=== PATIENT | female | born 1965 | race Caucasian/White ===

== ENCOUNTER → 2020-07-17 14:52 | Outpatient (CLI) | payer SELFPAY ==
--- NOTE | 2020-07-17 14:57 | CT_ITS ---
STUDY: CT LEFT LOWER EXTREMITY REASON FOR EXAM: Left knee replacement, surgical planning for revision. TECHNIQUE: Transaxial CT imaging of the lower extremity was performed. Coronal and sagittal images were reformatted. Individualized dose optimization techniques were used for this CT. COMPARISON: None. FINDINGS: Knee: There is a total knee arthroplasty. There is a radiolucency adjacent to the tibial stem, greatest at the anterior aspect (axial image 389) measuring 32 mm, suggestive of loosening. There is lateral tilt of the patella and mild lateral patellar subluxation (axial image 270) Normal proximal tibiofibular articulation. There is no joint effusion. The quadriceps tendon is grossly normal. The patellar tendon is grossly normal. Normal Hoffa''s fat pad. There is an ossicle at the medial aspect of the patella (coronal reconstructions 10-12). There are posterior intra-articular bodies (axial images 337-356). There are small anterior intra-articular bodies (sagittal reconstructions 49-53). Hip: The left hip joint space is well-preserved. Ankle: Unremarkable tibiotalar, posterior subtalar, talonavicular and calcaneocuboid articulations. There is ill-defined osteosclerosis in the medial aspect of the distal fibula (coronal reconstruction 38) and lateral aspect of the distal tibia (coronal reconstructions 33, 34) adjacent to the distal tibiofibular synchondrosis, likely enthesopathic changes. There is a posterior calcaneal enthesophyte (sagittal reconstructions 16). CT/Extremity Lower without Contra IMPRESSION: Total knee arthroplasty with radiolucency adjacent to the tibial stem suggestive of loosening. Lateral tilt and mild lateral subluxation of the patella. Intra-articular bodies in the left knee. Electronically Signed: Jose Crystal MD at 13:40 EST Tel , Service support ,
== END ==
PROVIDERS: PCP Family Medicine; Referring Provider Specialist; Visit Provider Specialist
DX: T84.033A Mechanical loosening of internal left knee prosthetic joint, initial encounter (principal)
CPT/HCPCS: 73700

== ENCOUNTER 2020-08-20 11:51 | Inpatient (IN) | payer SELFPAY ==
--- NOTE | 2020-07-17 14:07 | PCM.HP.BLA ---
History and Physical History and Physical [facility] Patient Name: Hilda Al : 1965 From: YUDITH BANDA PA-C DATE OF SURGERY: 08/06/2020 SCHEDULED PROCEDURE: Revision left total knee arthroplasty HISTORY OF PRESENT ILLNESS: Preoperative history and physical exam was performed on July 17, 2020. This is a 54-year-old female who is had ongoing pain for the past 1-2 months. Patient has had a previous bilateral total knee arthroplasty in 2007 at an outside institution at [facility]. Patient states she required a transfusion after the procedure. There is no history of any infections or repeat surgery. She states she began having pain approximately 2 months ago. She has had an infection workup which was negative. 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 Pain has been constant, dull, aching, stabbing, sore. She has increased pain with sitting, walking, and any heavy lifting. She states the more activity she does the more pain she gets in her knee. She feels unsafe walking on slippery surfaces are trying to run. She has tried previous rest. She denies any chest pain, shortness of breath, fevers chills, recent infections. She states she has no underlying medical complications. We are obtaining surgical clearance from the primary care physician. After discussion with Dr. Henrique Pérez, the patient does wish to proceed with a left revision total knee arthroplasty. REVIEW OF SYSTEMS: ROS: Const: Denies anorexia, anxiety, change in appetite, fever, difficulty sleeping, weight change. CV: Denies chest pain, heart murmur, irregular heartbeat and peripheral vascular disease. Resp: Denies asthma, cough, pneumonia, sleep apnea, shortness of breath, tuberculosis and wheezing. GI: Denies constipation, diarrhea, heartburn, nausea, rectal itching, bloody stools and vomiting. : Denies incontinence. Musculo: Reports leg swelling, pain, trouble walking and weakness. Skin: Denies Raynaud's, history of shingles and tattoo. Neuro: Denies ambulatory dysfunction, dizziness, numbness/tingling and tremor. Psych: Denies anxiety, depression, insomnia, mental illness and stress. Marlo/Lymph: Denies anemia, bleeding/bruising tendency and past transfusion. Reviewed, no changes. PAST MEDICAL HISTORY: Advance Care Plan: No Advance Directives Effective Date: 05/20/2020 PMH: Medical Problems: None Accidents: None Surgical Hx: Tonsillectomy - 1970 [facility] D & C - 2002 [facility] Odin TKR - (2007) Anesthesia Complications: None Assistive Devices: Glasses Reviewed and updated. 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 Personal Habits: Cigarette Use: Never.Smokeless Tobacco: Never Used Smokeless Tobacco.E-Cigarette Use: Never used.Alcohol: Denies use.Drug Use: Denies Use.Enjoy Exercising: Never Exercises. Reviewed, no changes. VITALS: Ht: 67 Wt: 179lb Wt k.194 BMI: 28.0 BP: 113/72 Pulse: 71 Resp: 14 T: 98.1 T: 36.7C Pain Level: 2 ALLERGIES: Povidone Iodine - rash MEDICATIONS: Iron 2 -3 daily, Vitamin D 1 a day, Womens Daily Formula 1 in the morning PRE-OP EXAM: General appearance:NORMAL Other: Eyes: Conjunctivae and lids: NORMAL Pupils: ERR Ears, Nose, Mouth, and Throat: NORMAL Other: Inspection of lips, teeth and gums: NORMAL Other: Neck: Examination of neck: no masses noted. Respiratory: Assessment of respiratory effort: NORMAL Other: Auscultation of lungs: clear to auscultation no wheezes, rhonchi or rales. Cardiovascular: Auscultation of heart: regular rate and rhythm, no murmurs, gallops or rubs. Exam of carotid arteries: NORMAL Other: Gastrointestinal: Exam of abdomen: soft, nontender, nondistended bowel sounds present. PHYSICAL EXAMINATION: Patient walks with a mild antalgic gait. She has tenderness to palpation along the pes anserine bursa. She also has posterior lateral knee pain. There is minimal translation with anterior drawer testing. 3 of hyperextension. 1-2 mm of medial lateral laxity. Flexion 132. Previous incision is well healed without any erythema or signs of infection. Sensation intact to light touch. IMAGING STUDIES: Previous x-rays of the left knee revealed well aligned left total knee arthroplasty. There are lucencies on the tibial component under the medial and lateral flanges. Mild lucencies around the post. Previous bone scan results from [facility] are also consistent with tibial component loosening. Previous lab work including CRP was 0.62 and ESR 4. IMPRESSION: 1. 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 Henrique Pérez did discuss and review with the patient all treatment options including surgical versus nonsurgical options. Patient does wish to proceed with the above-stated procedure. Potential risks, benefits, and complications of the procedure were discussed in detail including but not limited to , infection, nerve and blood vessel damage, persistent pain, numbness, tingling, paresthesias, blood clot, pulmonary embolism, and requirement for possible further surgery. The patient expressed full understanding and has no further questions for the doctor. Patient does agree to proceed with the above-stated procedure and has signed the surgery consent form. We discussed the current risks associated with COVID 19. This does include the risk of exposure while in the hospital. Patient was reassured local hospitals have low infection rates and are taking all necessary precautions to avoid exposure to patients. In addition, we discussed strategies that can be used to help limit exposure including those that limit the patient's time in the hospital. Also using strategies to limit the patient's need for continued inpatient services after being discharged from the hospital. Patient was notified that we will need to comply with any screening or testing the hospital wishes to perform or that surgery may be delayed for any positive results. This dictation was created using voice recognition software. Phonetic and/or grammatical errors may exist. ___ I have re-examined the patient. There are no clinical changes since date of exam. ___ See progress notes for changes. ___ Dictated on admission Date: Time: Signature:
--- NOTE | 2020-07-23 14:02 | EKG12_ITS ---
Test Reason : PRE OP Blood Pressure : / mmHG Vent. Rate : 068 BPM Atrial Rate : 068 BPM P-R Int : 130 ms QRS Dur : 076 ms QT Int : 380 ms P-R-T Axes : 019 008 009 degrees QTc Int : 404 ms Normal sinus rhythm Normal ECG Confirmed by CORBIN GARCÍA, PETER ([id number]), map editor TAI KENT ([id number]) on 07/30/2020 9:40:32 A M Referred By: Henrique Pérez Confirmed By:SURENDRA ALANIZ MD
[2020-07-23 14:54] LABS: Absolute Lymphocyte Count 1.55 X10^3/uL (0.83-4.51); Absolute Neutrophil Count 3.6 X10^3/uL (2.0-7.7); Basophil# 0.02 X10^3/uL; Basophil% 0.3 % (0-1); Eosinophil# 0.14 X10^3/uL; Eosinophils% 2.4 % (0-5); Hematocrit 40.5 % (37-54); Hemoglobin 13.4 g/dL (13.0-16.5); Lymphocyte # 1.55 X10^3/ul (4.0); Lymphocyte % 26.3 % (19-41); Mean Corp Hgb Conc 33.1 g/dL (32-36); Mean Corpuscular Hgb 29.6 pg (27.0-32.0); Mean Corpuscular Volume 89.4 fL (80-94); Mean Platelet Vol. 10.7 fl (6.2-12.0); Monocyte# 0.58 X10^3/uL; Monocyte% 9.8 % (0-10); NRBC Flagged by Analyzer 0 % (0-5); Platelet Count 228 K/mm3 (150-450); RBC Distribution Width CV 13.2 % (11.6-14.6); Red Blood Count 4.53 M/mm3 (4.6-6.2); White Blood Count 5.9 K/mm3 (4.4-11.0)
[2020-07-23 15:06] LABS: Prothrombin Time (Protime)PT. 13.1 SECONDS (11.7-14.9)
[2020-07-23 15:07] LABS: Partial Thromboplast Time 30.4 Seconds (24.1-36.2)
[2020-07-23 15:09] LABS: AST(SGOT) 13 U/L (15-37); Alanine Aminotransfer ALT/SGPT 25 U/L (13-61); Albumin, Serum 3.8 g/dL (3.2-5.0); Alkaline Phosphatase 62 U/L (45-117); Anion Gap 5 (5-15); BUN 14 mg/dL (7-18); BUN/Creat Ratio 22.3 RATIO (10-20); Bilirubin, Direct 0.09 mg/dL (0.00-0.30); Calcium,Total 9.1 mg/dL (8.5-10.1); Chloride 108 mmol/L (98-107); Creatinine, Serum 0.63 mg/dL (0.55-1.30); EST Glomerular Filtration Rate 105 mL/min (>60); Est Glom Filt Rate - Afr Amer 128 mL/min (>60); Globulin 3.4 g/dL (2.2-4.2); Glucose 77 mg/dL (74-106); Magnesium 1.8 mg/dL (1.6-2.6); Potassium 3.6 mmol/L (3.5-5.1); Protein, Total 7.2 g/dL (6.4-8.2); Sodium Level 142 mmol/L (136-145)
[2020-08-20] VITALS (11 sets, daily range): BP systolic 116–160; BP diastolic 67–87; PULSE 60–77; RESP 16–18; TEMP 36.1–37.1; O2SAT 98–100; BMI 28.0; BMI 27.3
[2020-08-20] MEDS: Gabapentin 600 MG Tablet PO (07:00)
[2020-08-20] MEDS: Scopolamine 1mg/72hr Patch 1 PATCH TD (07:00)
[2020-08-20] MEDS: Acetaminophen 500 MG Tablet 1000 MG PO ×2 (07:00→20:49)
[2020-08-20] MEDS: Lactated Ringers 1,000 ML 75 ML IV (07:00)
[2020-08-20] MEDS: Celecoxib 200 MG Capsule 400 MG PO (07:00)
[2020-08-20 12:55] LABS: Bedside Glucose 83 mg/dL (70-110)
--- NOTE | 2020-08-20 13:09 | PCM.HP.BLA ---
History and Physical History and Physical [facility] Patient Name: Hilda Al : 1965 From: YUDITH BANDA PA-C DATE OF SURGERY: 08/06/2020 SCHEDULED PROCEDURE: Revision left total knee arthroplasty HISTORY OF PRESENT ILLNESS: Preoperative history and physical exam was performed on July 17, 2020. This is a 54-year-old female who is had ongoing pain for the past 1-2 months. Patient has had a previous bilateral total knee arthroplasty in 2007 at an outside institution at [facility]. Patient states she required a transfusion after the procedure. There is no history of any infections or repeat surgery. She states she began having pain approximately 2 months ago. She has had an infection workup which was negative. 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 Pain has been constant, dull, aching, stabbing, sore. She has increased pain with sitting, walking, and any heavy lifting. She states the more activity she does the more pain she gets in her knee. She feels unsafe walking on slippery surfaces are trying to run. She has tried previous rest. She denies any chest pain, shortness of breath, fevers chills, recent infections. She states she has no underlying medical complications. We are obtaining surgical clearance from the primary care physician. After discussion with Dmyself, the patient does wish to proceed with a left revision total knee arthroplasty. REVIEW OF SYSTEMS: ROS: Const: Denies anorexia, anxiety, change in appetite, fever, difficulty sleeping, weight change. CV: Denies chest pain, heart murmur, irregular heartbeat and peripheral vascular disease. Resp: Denies asthma, cough, pneumonia, sleep apnea, shortness of breath, tuberculosis and wheezing. GI: Denies constipation, diarrhea, heartburn, nausea, rectal itching, bloody stools and vomiting. : Denies incontinence. Musculo: Reports leg swelling, pain, trouble walking and weakness. Skin: Denies Raynaud's, history of shingles and tattoo. Neuro: Denies ambulatory dysfunction, dizziness, numbness/tingling and tremor. Psych: Denies anxiety, depression, insomnia, mental illness and stress. Marlo/Lymph: Denies anemia, bleeding/bruising tendency and past transfusion. Reviewed, no changes. PAST MEDICAL HISTORY: Advance Care Plan: No Advance Directives Effective Date: 05/20/2020 PMH: Medical Problems: None Accidents: None Surgical Hx: Tonsillectomy - 1970 [facility] D & C - 2002 [facility] Odin TKR - (2008) Anesthesia Complications: None Assistive Devices: Glasses Reviewed and updated. 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 Personal Habits: Cigarette Use: Never.Smokeless Tobacco: Never Used Smokeless Tobacco.E-Cigarette Use: Never used.Alcohol: Denies use.Drug Use: Denies Use.Enjoy Exercising: Never Exercises. Reviewed, no changes. VITALS: Ht: 67 Wt: 179lb Wt k.194 BMI: 28.0 ALLERGIES: Povidone Iodine - rash MEDICATIONS: Iron 2 -3 daily, Vitamin D 1 a day, Womens Daily Formula 1 in the morning PRE-OP EXAM: General appearance:NORMAL Other: Eyes: Conjunctivae and lids: NORMAL Pupils: ERR Ears, Nose, Mouth, and Throat: NORMAL Other: Inspection of lips, teeth and gums: NORMAL Other: Neck: Examination of neck: no masses noted. Respiratory: Assessment of respiratory effort:nonlabored Cardiovascular: Auscultation of heart: regular pulse rate. Exam of carotid arteries: NORMAL Other: Gastrointestinal: Exam of abdomen: nondistended PHYSICAL EXAMINATION: Patient walks with a mild antalgic gait. She has tenderness to palpation along the pes anserine bursa. She also has posterior lateral knee pain. There is minimal translation with anterior drawer testing. 3 of hyperextension. 1-2 mm of medial lateral laxity. Flexion 132. Previous incision is well healed without any erythema or signs of infection. Sensation intact to light touch. IMAGING STUDIES: Previous x-rays of the left knee revealed well aligned left total knee arthroplasty. There are lucencies on the tibial component under the medial and lateral flanges. Mild lucencies around the post. Previous bone scan results from [facility] are also consistent with tibial component loosening. Previous lab work including CRP was 0.62 and ESR 4. IMPRESSION: 1. 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 Patient does wish to proceed with the above-stated procedure. Potential risks, benefits, and complications of the procedure were discussed in detail including but not limited to , infection, nerve and blood vessel damage, persistent pain, numbness, tingling, paresthesias, blood clot, pulmonary embolism, and requirement for possible further surgery. The patient expressed full understanding and has no further questions for the doctor. Patient does agree to proceed with the above-stated procedure and has signed the surgery consent form.
[2020-08-20] MEDS: Cefazolin 2 GM in 0.9% Normal Saline 100 ML IV (14:59)
[2020-08-20] MEDS: dexAMETHasone 10 MG/ML Vial IV (15:09)
[2020-08-20] MEDS: Lactated Ringers 1,000 ML 999 ML IV ×2 (16:00→18:41)
[2020-08-20] MEDS: Joint Pain Solution (NO MORPHINE) 100 ML IV (17:10)
--- NOTE | 2020-08-20 17:28 | OP.PCM_ITS ---
Report of Operation Date of Procedure: 08/20/20 Pre-Operative Diagnosis: Failed left total knee, aseptic loosening Post-Operative Diagnosis: Failed left total knee, aseptic loosening Surgery/Procedure Performed:: Robotic assisted revision left total knee replacement, entire tibial and femoral components Description of Surgical Findings:: Stable knee with good patella tracking. Patella component remains well fixed. butt welder: Viraj Spivey Type of Anesthesia:: Spinal Anesthesiologist: Nolberto Osullivan Special Medications: 2 g Ancef, 1 g TXA at incision, 1 g TXA closure, 10 mg Decadron, joint cocktail (5 mg Duramorph, 30 mL of 0.5% Ropivicaine, 1000 units of epinephrine, 30 mg of Toradol) Specimen's removed: 3 separate specimens were sent to microbiology Estimated Blood Loss (mL): 100 Fluids Replaced: 1500 mL crystalloid Description of Procedure: Implants used: 1. [place] size 4 triathlon total stabilized femoral component with 5 mm augment posterior medially and 10 mm augment posterior laterally and a 15 x 100 mm cemented stem 2. Arielle size 5 tibial baseplate with 12 x 50 mm cemented stem 3. [place] X3 19 mm TS polyethylene Brief history operative indications: 55-year-old female with history of left knee osteoarthritis with radiographic findings with loss of joint space, osteophyte formation and subchondral sclerosis. Failed conservative measures as mentioned in the H&P. Discussion of total knee arthroplasty as well as risk and benefits were discussed the patient including but not limited to blood loss, DVTs, PEs, neurovascular damage, general risk of anesthesia including loss of life, and stiffness or instability were discussed with patient. Patient demonstrated understanding and was able to sign informed consent. Procedure: On the date of procedure patient's left lower extremity was marked in the pre operative area. The patient was then taken back to the operating room where the patient was placed on the table in the supine position. All bony prominences were identified a well-padded. Anesthesia assumed control of the C-spine and airway and remained controlled throughout the remainder of the procedure. A tourniquet was placed on the left upper thigh and the leg was prepped in a sterile fashion. The surgeon then scrubbed at this time .Upon reentering the room left lower extremity was draped in a standard orthopedic fashion. A timeout was then called and everyone agreed upon the side, the site, the procedure to be performed, patient's identity and antibiotics given. Esmarch bandage was used to exsanguinate the extremity and the tourniquet was placed up to 250 mmHg with the knee in flexion. A midline skin incision was made using the previous incision and extending it 1 cm proximally distally and sharp dissection was taken down through skin subcutaneous tissue and fat. The standard medial parapatellar incision was made and the patella was subluxed laterally. An Appropriate deep MCL release was done in order to expose the tibia for implant removal and the fat pad was resected. At this time a complete synovectomy was performed. Suprapatellar synovium was sent for culture. The knee was then flexed up in 2 femoral pins were placed inside the incision and 2 tibial pins were placed outside the incision in the medial tibia bicortically. Once this was completed the 2 checkpoints in the femur and tibia were placed. Knee was then flexed up and the bony landmarks were registered. Once this was completed knee was taken through range of motion and manually stressed allowing us to a plan for an appropriate tibial cut. The robotic arm was brought into the field sterilely and checkpoint and saw were registered. At this time we then directed our attention to removing the femoral and tibial implants. Femur was removed first using a flexible osteotome and straight osteotome. Bone tamp was then used to remove with minimal bone loss. Then directed our attention to the tibia where a TPS saw and flexible osteotome were used. Once we had a loosened up enough bone tamp was used to remove it. It came out without much of the cement mantle clearly loosened from the cement mantle. The cement mantle was then debrided. Based on the patient's deformity and previous surgical plan the tibial cut was made in 1 degree of varus cleanup cut. At this time we then reamed for a size B tibial cone and selected a size 5 tibial baseplate punched the keel and put the trial tibia in place. At this time the tensioner was then placed in the joint and ligament tension was checked at 90 degrees and full extension. Based on the patient's ligamentous tension appropriate adjustments were made to the operative plan and ligament releases were done. Once we were happy with our operative plan with balanced flexion and extension gaps our attention was directed to the femur. The robot was brought into the field sterilely and registered. Posterior condylar cuts, anterior chamfer cuts and anterior cuts were appropriately made for a size 4 femur. Based on the bone loss we then made a 5 mm cut for the posterior medial condyle and then a 10 mm cut for the posterior lateral condyle. Distally we were able to make fresh cleanup cuts when these were completed the saws were switched out in the distal femoral and posterior chamfer cuts were made. Protecting the soft tissue throughout this time. A size 5 tibial base plate was selected. the knee was flexed to 90 degrees and the soft tissues and posterior osteophytes were removed from the joint. 40 cc of the periarticular injection was injected into the posterior medial corner of the joint. The appropriate trials were then placed on the femur and tibia. A trial polyethylene was trialed to ensure proper balancing and stability of the knee. The appropriate tibial internal rotation was then marked with a bovie. Our attention was then directed to the patella. The lug holes were drilled and the patella trial was placed. Patellar tracking was checked and deemed appropriate. Once we were happy lug holes were drilled for the femur and trial components were removed. the tibia was subluxed and pinned into place and the keel was punched and drilled appropriately. Final components were verified and opened, and cement was mixed in a vacuum. [employer] Simplex cement was used. The wound was copiously irrigated with normal saline. When the cement was ready the components were cemented into place starting with the tibia, and then the femur. This was done in 2 separate batches. The trial poly component was placed and the knee was placed in full extension. All excess cement was removed in the process. Once the cement had cured the tracking, alignment and balance were verified and a size 19 mm TS polyethylene component was placed. Once the final components were placed an Irrisept lavage was performed and the wound was copiously irrigated with normal saline solution and the periarticular injection was given. The wound was closed in a layer arellano fashion using #1 vicryl interrupted sutures for the arthrotomy, 2-0 interrupted Vicryl suture for the subcuticular layer and lashay for final skin closure. A sterile compressive dressing was then placed. The patient was then awakened from anesthesia, transferred to the [facility] and transferred to the PACU for recovery. Post op plan DVT ppx: ASA 81mg BID, thigh high compression stockings Follow up: in office in 2 weeks for wound check. Patient will take doxycycline for 2 weeks as we follow cultures PT: to start POD #0 at hospital, outpatient PT should be arranged. My physician retail administrative assistant was a vital part of this case. He was important in appropriate retraction during the case, and protection of soft tissues during bony cuts. His intimate knowledge of the case and my steps aided in safe and expedient completion of the procedure as well as appropriate position of the leg during the case. He was also vital in assisting with closure under my direct supervision. Due to the complexity of this case robotic arm was used to assist in the surgery to improve accuracy and clinical outcomes. - Complications No intraoperative complications - Admit VTE Documentation VTE Present on Admission: No VTE Mechan Device Prophylaxis: SCD's, Thigh High YAMIL Riley VTE Pharm Prophylaxis ordered?: Yes
--- NOTE | 2020-08-20 18:15 | RAD_ITS ---
STUDY: X-RAY - LEFT KNEE REASON FOR EXAM: Female, 55 years old. post op left knee TECHNIQUE: 2 view(s) of the knee. COMPARISON: None. Findings: There is a recent total knee arthroplasty. The femoral and tibial components appear in satisfactory position. There has been patellar resurfacing. There is soft tissue air consistent with recent surgery. The visualized femoral, tibial, and fibular shafts are unremarkable. RAD/Knee 1 or 2 Views IMPRESSION: Satisfactory appearance of a total knee arthroplasty. Electronically Signed: Vipul Fregoso MD at 18:39 EST , Service support ,
[2020-08-20] MEDS: Lactated Ringers 1,000 ML 125 ML IV (20:02)
--- NOTE | 2020-08-20 20:12 | PCS.PANDOC ---
PANDEMIC DOCUMENTATION INITIATED: Date: 08/20/20 Time: 1950
--- NOTE | 2020-08-20 20:29 | PN_ITS ---
Reason for Visit: Left knee pain Subjective: Patient is a 55-year-old female with a significant history of bilateral knee replacements who is postop day 0 for revision of left total knee arthroplasty. In 2007 patient had a bilateral knee replacements. One to two months ago she developed pain in her left knee. Patient was diagnosed with aseptic loosening of the left total knee implants. Infectious work-up was unremarkable. Internal medicine service has been consulted for postop medical management.. At the time of examination patient complains of pain in left knee as well as pain in suprapubic area and lower back pain. Vitals/I&O's: Vital Signs Temp Pulse Resp BP Pulse Ox 96.9 F L 63 16 147/77 H 100 08/20/20 19:58 08/20/20 19:58 08/20/20 19:58 08/20/20 19:58 08/20/20 19:58 Oxygen Flow Rate (L/min) 7 Oxygen Delivery Method Simple Mask Weight: 79.379 kg Body Mass Index (BMI) 27.3 Intake and Output for Last 24 Hours 08/18/20 08/19/20 08/20/20 23:59 23:59 23:59 Intake Total 3435 / 3435 Balance 3435 / 3435 General: Alert, Oriented x3, Cooperative HEENT: Atraumatic, PERRLA, EOMI, Normocephalic Neck: Supple, No JVD, Negative Carotid Bruits Lungs: Clear to auscultation, Normal air movement Cardiovascular: Regular rate, No murmurs Abdomen: Bowel Sounds Present, Soft, Non Tender, - - Mild suprapubic tenderness Extremities: No edema, Capillary Refill Less than 3 Seconds, - - Left knee with ice pack. Skin: No rashes, No breakdown Musculoskeletal: No Tenderness to Palpation of Joints or Extremities Neurological: Cranial nerves II-XII grossly intact Psych/Mental Status: Normal Affect, Appropriate Microbiology Past 72 Hours 08/19/20 09:30 Interface Orders SARS-CoV-2 Antigen (Rapid) - Final Laboratory Results 08/20/20 12:38: POC Glucose 83 Current Medications Acetaminophen (Acetaminophen 500 Mg Tablet) 1,000 mg PO Q8 [facility] Aspirin (Aspirin 81 Mg Tab.Chew) 81 mg PO BIDCM [facility] Doxycycline Monohydrate (Doxycycline 100 Mg Capsule) 100 mg PO BID [facility] Enteral Nutritional Formula (Ensure Surgery 237 Ml Liquid) 237 ml PO TIDCM [facility] Famotidine (Famotidine 20 Mg Tablet) 20 mg PO DAILY [facility] Hydromorphone HCl (Hydromorphone 0.5 Mg/0.5 Ml Syringe) 0.5 mg IV Q3H PRN PRN PRN Reason: Pain Score 6-10 Lactated Ringer's () 1,000 mls @ 125 mls/hr IV .Q8H [facility] Last Admin: 08/20/20 20:02 Dose: 125 mls/hr Documented by: Cefazolin Sodium () 1 gm in 50 mls @ 150 mls/hr IV Q8H [facility] Stop: 08/21/20 07:19 Sodium Chloride () 250 mls @ 15 mls/hr IV .[id number] PRN PRN Reason: Saline Flush Sodium Chloride () 250 mls @ 15 mls/hr IV .[id number] PRN PRN Reason: Additional IVPB Infusion Ketorolac Tromethamine (Ketorolac 15 Mg/Ml Vial) 15 mg IV Q6H PRN PRN PRN Reason: Pain Score 1-10 Stop: 08/21/20 23:01 Meloxicam (Meloxicam 7.5 Mg Tablet) 7.5 mg PO BID [facility] Ondansetron HCl (Ondansetron 4 Mg/2 Ml Vial) 4 mg IV Q8H PRN PRN PRN Reason: NAUSEA Promethazine HCl (Promethazine 25 Mg/Ml Syringe) 12.5 mg IM Q6H PRN PRN; Protocol PRN Reason: NAUSEA/VOMITING Senna/Docusate Sodium (Senna/Docusate Sodium 1 Tablet) 2 tablet PO BID [facility] Sodium Chloride (0.9% Nacl Peripheral Flush Adult/Peds) 5 - 15 ml IV UD PRN PRN Reason: SALINE FLUSH Sodium Chloride (0.9% Saline Lock 10 Ml Syringe) 10 - 40 ml IV UD PRN PRN Reason: SALINE FLUSH Tramadol HCl (Tramadol 50 Mg Tablet) 50 - 100 mg PO Q6H PRN PRN PRN Reason: Pain Score 4-10 STROKE Vital Signs/Narrative: Vital Signs Temp Pulse Resp BP Pulse Ox 08/20/20 19:58 96.9 F L 63 16 147/77 H 100 08/20/20 19:31 98.0 F 67 16 139/81 H 100 08/20/20 19:15 62 16 135/82 H 100 08/20/20 19:00 67 16 133/75 H 100 08/20/20 18:45 60 16 130/77 H 100 08/20/20 18:30 70 16 125/67 H 100 08/20/20 18:15 63 16 119/75 100 08/20/20 18:07 97.8 F 77 18 116/70 100 Medical Necessity - Tobacco Use Smoking Status: Never smoker Tobacco Use: Non-smoker Assessment/Plan Patient is a 55-year-old female with a significant history of bilateral knee replacements who is postop day 0 revision of left arthroplasty arthroplasty. Post op Day 1 On pain control Cultures per orthopedic surgery CBC and BMP in a.m. On cefazolin preoperatively; and on doxycycline. Per Orthopedic notes patient will be on dicyclomine for 2 weeks while cultures are followed. Management per primary. Suprapubic pain and lower back pain Likely secondary to patient's not emptying bladder post surgery and positioning Bladder scan as needed postvoid DVT prophylaxis SCD; YAMIL larrye and aspirin per orthopedic surgery Inpatient E&M: 69264 Init Hosp L2
[2020-08-20] MEDS: Ondansetron 4 MG/2 ML Vial IV (20:44)
[2020-08-20] MEDS: Senna/Docusate Sodium 1 Tablet 2 TABLET PO (20:49)
[2020-08-20] MEDS: Doxycycline 100 MG CAPSULE PO (20:49)
[2020-08-20] MEDS: Aspirin 81 MG TAB.CHEW PO (20:49)
[2020-08-20] MEDS: Cefazolin 1 GM/50 ML BAG IV (22:28)
[2020-08-20] MEDS: traMADol 50 MG Tablet PO (22:33)
[2020-08-21] VITALS: BP 124/81; PULSE 62; RESP 16; TEMP 36.5; O2SAT 98
[2020-08-21 01:00] VITALS: BP 124/81; PULSE 74; RESP 16; TEMP 36.5; O2SAT 99
[2020-08-21] MEDS: Ketorolac 15 MG/ML Vial IV ×2 (01:46→10:09)
[2020-08-21] MEDS: 0.9% NaCl Peripheral Flush Adult/Peds IV ×3 (01:48→10:11)
[2020-08-21 03:15] VITALS: BP 119/65; PULSE 60; RESP 16; TEMP 36.4; O2SAT 99
[2020-08-21] MEDS: Lactated Ringers 1,000 ML 15 ML IV (05:37)
[2020-08-21] MEDS: Acetaminophen 500 MG Tablet 1000 MG PO ×2 (05:41→14:20)
[2020-08-21] MEDS: traMADol 50 MG Tablet PO ×2 (05:42→15:15)
[2020-08-21] MEDS: Cefazolin 1 GM/50 ML BAG IV (05:44)
[2020-08-21 05:59] VITALS: BP 144/74; PULSE 60; RESP 18; TEMP 36.5; O2SAT 99
[2020-08-21 07:24] LABS: Hematocrit 40.9 % (37-47); Hemoglobin 13.6 g/dL (12.0-15.0); Mean Corp Hgb Conc 33.3 g/dL (32-36); Mean Corpuscular Hgb 29.7 pg (27.0-32.0); Mean Corpuscular Volume 89.3 fL (81-99); Platelet Count 231 K/mm3 (150-450); RBC Distribution Width CV 12.6 % (11.6-14.6); RBC Distribution Width SD 41.2 fl (35.1-43.9); Red Blood Count 4.58 M/mm3 (4.2-5.4); White Blood Count 14.8 K/mm3 (4.4-11.0)
[2020-08-21] MEDS: Aspirin 81 MG TAB.CHEW PO (08:06)
[2020-08-21 08:10] LABS: Anion Gap 4 (5-15); BUN 10 mg/dL (7-18); BUN/Creat Ratio 12.8 RATIO (10-20); Calcium,Total 9.1 mg/dL (8.5-10.1); Chloride 106 mmol/L (98-107); Creatinine, Serum 0.78 mg/dL (0.55-1.02); EST Glomerular Filtration Rate 82 mL/min (>60); Est Glom Filt Rate - Afr Amer 99 mL/min (>60); Estimated Creatinine Clearance 81.11 ml/min; Glucose 117 mg/dL (74-106); Potassium 4.3 mmol/L (3.5-5.1); Sodium Level 138 mmol/L (136-145)
[2020-08-21 08:46] VITALS: BP 117/74; PULSE 57; RESP 18; TEMP 36.4; O2SAT 100
--- NOTE | 2020-08-21 09:01 | PCM.PN.ORT ---
Subjective: The patient was sitting in bedside chair upon examination. Patient denies any chest pain, shortness of breath, dizziness, lightheadedness, nausea or vomiting, or calf pain. Pain is controlled on medications. No adverse overnight events. Overall patient is doing well at this point. She has required pain medication. Patient has significant allergies with narcotic pain meds including hydrocodone, oxycodone, and morphine. She is able to take Tylenol. Patient states she has been up walking to the bathroom and has tolerated this well. She does wish to go home today as long as she is medically stable. Objective: Vital signs stable and afebrile. Patient is able to plantarflex and dorsiflex actively. Sensation is intact to light touch to saphenous, sural, superficial and deep peroneal, and tibial distribution. Dressing is with minimal drainage over the proximal main dressing and remaining dressings are clean dry and intact. Negative Homans bilaterally, negative signs and symptoms of DVT. - Physical Exam Vitals/I&O's: Vital Signs Temp Pulse Resp BP Pulse Ox 97.5 F L 57 L 18 117/74 100 08/21/20 08:46 08/21/20 08:46 08/21/20 08:46 08/21/20 08:46 08/21/20 08:46 Oxygen Flow Rate (L/min) 7 Oxygen Delivery Method Room Air Weight: 79.379 kg Body Mass Index (BMI) 27.3 Intake and Output for Last 24 Hours 08/19/20 08/20/20 08/21/20 23:59 23:59 23:59 Intake Total 3485 / 3885 1650 / 1650 Output Total 1900 / 1900 Balance 3485 / 3285 -250 / -250 General: Alert, Oriented x3, Cooperative, No apparent distress Microbiology Past 72 Hours 08/19/20 09:30 Interface Orders SARS-CoV-2 Antigen (Rapid) - Final Laboratory Results 08/20/20 12:38: POC Glucose 83 08/21/20 06:23: WBC 14.8 H, RBC 4.58, Hgb 13.6, Hct 40.9, MCV 89.3, MCH 29.7, MCHC 33.3, RDW Std Deviation 41.2, RDW Coeff of Gilda 12.6, Plt Count 231, MPV 11.0 08/21/20 06:23: Sodium 138, Potassium 4.3, Chloride 106, Carbon Dioxide 28.0, Anion Gap 4 L, BUN 10, Creatinine 0.78, Estim Creat Clear Calc 81.11, Est GFR (MDRD) Af Amer 99, Est GFR (MDRD) Non-Af 82, BUN/Creatinine Ratio 12.8, Glucose 117 H, Calcium 9.1 Current Medications Acetaminophen (Acetaminophen 500 Mg Tablet) 1,000 mg PO Q8 [facility] Last Admin: 08/21/20 05:41 Dose: 1,000 mg Documented by: Aspirin (Aspirin 81 Mg Tab.Chew) [facility] Last Admin: 08/21/20 08:06 Dose: 81 mg Documented by: Doxycycline Monohydrate (Doxycycline 100 Mg Capsule) 100 mg PO BID [facility] Last Admin: 08/20/20 20:49 Dose: 100 mg Documented by: Enteral Nutritional Formula (Ensure Surgery 237 Ml Liquid) 237 ml PO TIDCM [facility] Last Admin: 08/21/20 08:07 Dose: Not Given Documented by: Famotidine (Famotidine 20 Mg Tablet) 20 mg PO DAILY [facility] Hydromorphone HCl (Hydromorphone 0.5 Mg/0.5 Ml Syringe) 0.5 mg IV Q3H PRN PRN PRN Reason: Pain Score 6-10 Lactated Ringer's () 1,000 mls @ 125 mls/hr IV .Q8H [facility] Last Admin: 08/21/20 05:37 Dose: 15 mls/hr Documented by: Sodium Chloride () 250 mls @ 15 mls/hr IV .[id number] PRN PRN Reason: Saline Flush Sodium Chloride () 250 mls @ 15 mls/hr IV .[id number] PRN PRN Reason: Additional IVPB Infusion Ketorolac Tromethamine (Ketorolac 15 Mg/Ml Vial) 15 mg IV Q6H PRN PRN PRN Reason: Pain Score 1-10 Stop: 08/21/20 23:01 Last Admin: 08/21/20 01:46 Dose: 15 mg Documented by: Meloxicam (Meloxicam 7.5 Mg Tablet) 7.5 mg PO BID [facility] Ondansetron HCl (Ondansetron 4 Mg/2 Ml Vial) 4 mg IV Q8H PRN PRN PRN Reason: NAUSEA Last Admin: 08/20/20 20:44 Dose: 4 mg Documented by: Promethazine HCl (Promethazine 25 Mg/Ml Syringe) 12.5 mg IM Q6H PRN PRN; Protocol PRN Reason: NAUSEA/VOMITING Senna/Docusate Sodium (Senna/Docusate Sodium 1 Tablet) 2 tablet PO BID [facility] Last Admin: 08/20/20 20:49 Dose: 2 tablet Documented by: Sodium Chloride (0.9% Nacl Peripheral Flush Adult/Peds) 5 - 15 ml IV UD PRN PRN Reason: SALINE FLUSH Last Admin: 08/21/20 05:46 Dose: 10 ml Documented by: Sodium Chloride (0.9% Saline Lock 10 Ml Syringe) 10 - 40 ml IV UD PRN PRN Reason: SALINE FLUSH Tramadol HCl (Tramadol 50 Mg Tablet) 50 - 100 mg PO Q6H PRN PRN PRN Reason: Pain Score 4-10 Last Admin: 08/21/20 05:42 Dose: 100 mg Documented by: Medical Necessity - Tobacco Use Smoking Status: Never smoker Tobacco Use: Non-smoker Assessment/Plan 1. S/P revision left total knee arthroplasty secondary to aseptic loosening POD #1 2. Continue Pain Medications: Tylenol, tramadol, meloxicam 3. DVT Prophylaxis: Take 81 mg aspirin twice daily for 4 weeks postoperatively for DVT prophylaxis 4. PT/OT: Weightbearing as tolerated 5. H & H: 13.6/40.9, asymptomatic. Postoperative anemia secondary to acute blood loss from surgery without any intra operative complications. 6. Reactive leukocytosis: Currently 14.8, afebrile. Patient did receive Decadron intraoperatively 7. Continue antibiotics while following cultures: Currently pending. She is on doxycycline 1 week postoperatively 8. Continue postoperative medical management per medicine 9. Encouraged Incentive Spirometry 10. Disposition: Plan will be for possible discharge home today as long as patient is medically stable and pain is well controlled. I had a discussion again with the patient with regards to postoperative pain control. She is aware this may be difficult as she has significant allergies to other narcotics. So far she has tolerated the tramadol, Tylenol without any complications. She will be also on meloxicam for pain control. At this time we will proceed forward with physical therapy and if she is doing well possible discharge home later this afternoon. She will follow-up per postop instructions. Case management will assist in scheduling postoperative physical therapy. Prescriptions will be E scribed to [facility] pharmacy. I have reviewed the [place] Automated Rx Reporting System (OARRS) report for this patient for refill pattern and other prescriber involvement as part of the appropriate surveillance for the provision of acute and chronic controlled medications. The report was requested and reviewed on the date of this entry and was considered in the prescribing process.
--- NOTE | 2020-08-21 09:09 | DCINST_ITS ---
Discharge Diet: No Restrictions Discharge Activity: May Not Drive May shower in (days): 1 - Okay to shower if dressing is intact to skin. Turn dressing away from water. Do not submerge underwater for 6 weeks postoperatively. Ice area for (Minutes): 20 - Every 1-2 hours while awake Weight Bearing Status: Weight bearing as tolerated Elevate: Operative Extremity Additional Activity Instructions:: Wear elastic stockings for 2 weeks after your surgery. Call your doctor if your incision/area has: Continuous Slow Oozing, Sudden Increased Bleeding, Increased Pain/ Swelling, Increased Redness, Foul Smelling Discharge Call your doctor if you observe: Fever of 101 or Higher, Coldness, Increased Pain, Numbness or Tingling, Change in Color, Calf discomfort, Uncontrolled pain Remove Dressing in (days):: 4 - Okay to remove dressing on August 25, 2020 Additional Instructions: Follow [facility] Post-op Instructions. Once postoperative dressing has been removed only use gentle soap and water over the incision. Do not use any ointments, Neosporin, salves, alcohol pads over the incision for 6 weeks postoperatively. Do not submerge underwater for 6 weeks postoperatively. Allergies/Adverse Reactions: Allergies acetaminophen [From Vicodin] Allergy (Verified 08/20/20 12:20) Shortness of breath TACHYCARDIA hydrocodone [From Vicodin] Allergy (Verified 08/20/20 12:20) Shortness of breath TACHYCARDIA iodine Allergy (Verified 08/20/20 12:20) Rash morphine Allergy (Verified 08/20/20 12:20) Shortness of breath TACHYCARDIA oxycodone [From Percocet] Allergy (Verified 08/20/20 12:20) Shortness of breath TACHYCARDIA Medications to take at Discharge Cholecalciferol (VIT D3) [Vitamin D3] 1,000 unit PO DAILY 07/22/20 Ferrous Sulfate [Ferosul] 325 mg PO DAILY 07/22/20 Multivit/Iron/Folic Acid/Hb179 [Womens Multivit Hi Potency Tab] 1 ea PO DAILY 07/22/20 Acetaminophen [Tylenol] 1,000 mg PO Q8 #100 tab 08/21/20 Aspirin [Aspirin, Baby] 81 mg PO BIDCM #60 tab 08/21/20 Doxycycline 100 mg PO BID #14 cap 08/21/20 Famotidine [Pepcid] 20 mg PO DAILY #30 tab 08/21/20 Meloxicam [Mobic] 7.5 mg PO BID #60 tab 08/21/20 Senna/Docusate Sodium [Senokot-S] 2 tab PO BID #14 tab 08/21/20 traMADol [Ultram] 50 - 100 mg PO Q6H PRN PRN 7 Days #56 tab 08/21/20 The following prescriptions were given: Aspirin [Aspirin, Baby] 81 mg PO BIDCM #60 tab Transmission Status: Received by [facility] Doxycycline 100 mg PO BID #14 cap Transmission Status: Received by [facility] Meloxicam [Mobic] 7.5 mg PO BID #60 tab Transmission Status: Received by [facility] Famotidine [Pepcid] 20 mg PO DAILY #30 tab Transmission Status: Received by [facility] Senna/Docusate Sodium [Senokot-S] 2 tab PO BID #14 tab Transmission Status: Received by [facility] Acetaminophen [Tylenol] 1,000 mg PO Q8 #100 tab Transmission Status: Received by [facility] traMADol [Ultram] 50 - 100 mg PO Q6H PRN PRN 7 Days #56 tab PRN Reason: Pain Score 4-10 Transmission Status: Received by [facility] Primary Care Physician: Bi Siddiqui MD [Primary Care Provider] - Test Results: Test results from this visit will be discussed in further detail at your follow- up appointment, if applicable. Please Follow Up With: Viraj Spivey PA-C When: 09/03/20 @ 9:00 am
--- NOTE | 2020-08-21 09:25 | CASEMGMT ---
NIKITA MILLAN Face to Face with patient for initial transition planning/care coordination assessment. NIKITA MILLAN introduced self and role at [facility]. Patient sitting in chair, alert and oriented. Patient willing to participate in assessment and is able to answer all questions appropriately. Care providers, pharmacy, and demographics verified. Patient wishes to discharge home and would like home therapy and would like [facility] after reviewing options. RN MONTY sent referral to [facility] and they are able to accept the patient. RN MONTY updated that patient regarding acceptance. Patient states she has no further needs or concerns at this time. CM to follow for discharge planning needs that may arise. PCP: Artur Specialists: sonal Pérez Pharmacy: [facility] Insurance: Faith Prescription Benefit: none Living Will/HPOA: none LNOK: Living Arrangements: Patient lives with in a 3 story home with bed and bath on first floor. 2 steps and railing to enter the home. Patient states she was independent at home. Transportation: Driving service DME/HHC: Patient states she has cane, walker, and crutches at home. Patient setup with [facility] for home therapy Disposition Plan: Patient to discharge home with home therapy, family support, and follow-up plans in place. Tamica CLARK, RN, CM
[2020-08-21] MEDS: Doxycycline 100 MG CAPSULE PO (11:23)
[2020-08-21] MEDS: Famotidine 20 MG Tablet PO (11:24)
[2020-08-21] MEDS: Senna/Docusate Sodium 1 Tablet 2 TABLET PO (11:24)
[2020-08-21] MEDS: Ensure Surgery 237 ML LIQUID PO (11:59)
--- NOTE | 2020-08-21 13:10 | PCM.PN.HOSP ---
Vitals/I&O's: Vital Signs Temp Pulse Resp BP Pulse Ox 97.5 F L 57 L 18 117/74 100 08/21/20 08:46 08/21/20 08:46 08/21/20 08:46 08/21/20 08:46 08/21/20 08:46 Oxygen Flow Rate (L/min) 7 Oxygen Delivery Method Room Air Weight: 79.379 kg Body Mass Index (BMI) 27.3 Intake and Output for Last 24 Hours 08/19/20 08/20/20 08/21/20 23:59 23:59 23:59 Intake Total 3485 / 3885 1650 / 1650 Output Total 1900 / 1900 Balance 3485 / 3285 -250 / -250 General: Alert, Oriented x3, Cooperative, No apparent distress, Well developed, Well nourished, - - Middle-aged white female sitting up in chair next to bedside, legs elevated HEENT: Atraumatic, Normocephalic Lungs: Clear to auscultation, Normal air movement, No rhonchi, No wheeze, No rales Cardiovascular: Regular rate, Regular Rhythm, Normal S1, Normal S2, No murmurs, No Ectopic Activity, No rub noted, No Gallop Abdomen: Bowel Sounds Present, Soft, Non Tender, Non-Distended Extremities: No clubbing, No cyanosis, Capillary Refill Less than 3 Seconds, Edema - On surgical lower extremity trace, Peripheral Pulses Normal Neurological: Cranial nerves II-XII grossly intact, Neuro grossly intact Psych/Mental Status: Normal Affect, Appropriate Microbiology Past 72 Hours 08/20/20 Unknown Tissue - Knee Gram Stain - Final 08/20/20 Unknown Tissue - Knee Wound Culture - Preliminary No growth-Final to follow 08/20/20 Unknown Tissue - Knee Gram Stain - Final 08/20/20 Unknown Tissue - Knee Wound Culture - Preliminary No growth-Final to follow 08/20/20 Unknown Tissue - Knee Gram Stain - Final 08/20/20 Unknown Tissue - Knee Wound Culture - Preliminary No growth-Final to follow 08/19/20 09:30 Interface Orders SARS-CoV-2 Antigen (Rapid) - Final Laboratory Results 08/21/20 06:23: WBC 14.8 H, RBC 4.58, Hgb 13.6, Hct 40.9, MCV 89.3, MCH 29.7, MCHC 33.3, RDW Std Deviation 41.2, RDW Coeff of Gilda 12.6, Plt Count 231, MPV 11.0 08/21/20 06:23: Sodium 138, Potassium 4.3, Chloride 106, Carbon Dioxide 28.0, Anion Gap 4 L, BUN 10, Creatinine 0.78, Estim Creat Clear Calc 81.11, Est GFR (MDRD) Af Amer 99, Est GFR (MDRD) Non-Af 82, BUN/Creatinine Ratio 12.8, Glucose 117 H, Calcium 9.1 Current Medications Acetaminophen (Acetaminophen 500 Mg Tablet) 1,000 mg PO Q8 [facility] Last Admin: 08/21/20 05:41 Dose: 1,000 mg Documented by: Aspirin (Aspirin 81 Mg [facility].Chew) [facility] Last Admin: 08/21/20 08:06 Dose: 81 mg Documented by: Doxycycline Monohydrate (Doxycycline 100 Mg Capsule) 100 mg PO BID [facility] Last Admin: 08/21/20 11:23 Dose: 100 mg Documented by: Enteral Nutritional Formula (Ensure Surgery 237 Ml Liquid) 237 ml PO TIDCM [facility] Last Admin: 08/21/20 11:59 Dose: 237 ml Documented by: Famotidine (Famotidine 20 Mg Tablet) 20 mg PO DAILY [facility] Last Admin: 08/21/20 11:24 Dose: 20 mg Documented by: Hydromorphone HCl (Hydromorphone 0.5 Mg/0.5 Ml Syringe) 0.5 mg IV Q3H PRN PRN PRN Reason: Pain Score 6-10 Lactated Ringer's () 1,000 mls @ 125 mls/hr IV .Q8H [facility] Last Admin: 08/21/20 05:37 Dose: 15 mls/hr Documented by: Sodium Chloride () 250 mls @ 15 mls/hr IV .[id number] PRN PRN Reason: Saline Flush Sodium Chloride () 250 mls @ 15 mls/hr IV .[id number] PRN PRN Reason: Additional IVPB Infusion Ketorolac Tromethamine (Ketorolac 15 Mg/Ml Vial) 15 mg IV Q6H PRN PRN PRN Reason: Pain Score 1-10 Stop: 08/21/20 23:01 Last Admin: 08/21/20 10:09 Dose: 15 mg Documented by: Meloxicam (Meloxicam 7.5 Mg Tablet) 7.5 mg PO BID [facility] Ondansetron HCl (Ondansetron 4 Mg/2 Ml Vial) 4 mg IV Q8H PRN PRN PRN Reason: NAUSEA Last Admin: 08/20/20 20:44 Dose: 4 mg Documented by: Promethazine HCl (Promethazine 25 Mg/Ml Syringe) 12.5 mg IM Q6H PRN PRN; Protocol PRN Reason: NAUSEA/VOMITING Senna/Docusate Sodium (Senna/Docusate Sodium 1 Tablet) 2 tablet PO BID [facility] Last Admin: 08/21/20 11:24 Dose: 2 tablet Documented by: Sodium Chloride (0.9% Nacl Peripheral Flush Adult/Peds) 5 - 15 ml IV UD PRN PRN Reason: SALINE FLUSH Last Admin: 08/21/20 10:11 Dose: 10 ml Documented by: Sodium Chloride (0.9% Saline Lock 10 Ml Syringe) 10 - 40 ml IV UD PRN PRN Reason: SALINE FLUSH Tramadol HCl (Tramadol 50 Mg Tablet) 50 - 100 mg PO Q6H PRN PRN PRN Reason: Pain Score 4-10 Last Admin: 08/21/20 05:42 Dose: 100 mg Documented by: Medical Necessity - Tobacco Use Smoking Status: Never smoker Tobacco Use: Non-smoker Assessment/Plan Left TKA -Postop day 1 -Patient denying any significant pain -Cultures obtained in OR and patient will remain on doxycycline at discharge -No issues with urinating -Aspirin for DVT prophylaxis -Pain management per primary -Plan is for discharge home today Suprapubic pain -Pain resolved suspect urinary retention in the postoperative period DVT prophylaxis -Aspirin per orthopedics Inpatient E&M: [id number] [facility] L2
[2020-08-21 14:46] VITALS: BP 135/81; PULSE 64; RESP 18; TEMP 36.8; O2SAT 100
== END 2020-08-21 17:00 | disposition home or self-care (01) | DRG 468 ==
LOC: ACINP 11:56 → MS3 18:00
PROVIDERS: Anesthesiology; Admitting Provider Specialist; PCP Family Medicine; Referring Provider Specialist; Visit Provider Internal Medicine
PROC: 0SPD0JZ Removal of Synthetic Substitute from Left Knee Joint, Open Approach (ICD-10-PCS; principal; 2020-08-20 13:50)
DX: T84.093A Other mechanical complication of internal left knee prosthesis, initial encounter (principal); Y79.2 Prosthetic and other implants, materials and accessory orthopedic devices associated with adverse incidents; Z20.828 Contact with and (suspected) exposure to other viral communicable diseases
CPT/HCPCS: 36415; 73560; 80048; 80076; 82962; 83735; 85025; 85027; 85610; 85730; 87015; 87070; 87075; 87081; 87102; 87116; 87176; 87205; 87206; 87426; 93005; 97161; 97166; 97530; 97535; 99251; C1776; C9803; J7120; A4216; G0463; J2405